=== PATIENT | male | born 1935 | race Caucasian/White ===

== ENCOUNTER 2018-05-02 10:15 | Emergency (ER) | payer OTHER ==
[~2018-05-02] VITALS: Ht 165.1 cm; Wt 71.4 kg
[2018-05-02 10:16] VITALS: Ht 165.1 cm; Wt 71.4 kg
[2018-05-02] MEDS ORDERED: BAYER CHEWABLE81 MG PO (10:19)
[2018-05-02] MEDS ORDERED: PRINIVIL20 MG PO (10:19)
[2018-05-02 10:59] LABS: BASOPHILS 0.2 % (0-2); EOSINOPHILS 1.1 % (0-7); HEMATOCRIT 32.3 % (42.0-54.0); HEMOGLOBIN 11.4 g/dL (13.5-17.5); IMMATURE GRANULOCYTES 0.3 % (0-5); LYMPHOCYTES 27.8 % (15-50); MCH 34.2 pg (26.0-34.0); MCHC 35.3 g/dL (31.0-37.0); MEAN PLATELET VOLUME 8.7 fL (7.4-10.4); MONOCYTES 9.1 % (2-11); NEUTROPHILS 61.5 % (40-80); PLATELET COUNT 251 10x3/uL (130-400); RBC 3.33 10x6/uL (4.20-6.10); RDW 12.8 % (11.5-14.5); WBC 6.6 10x3/uL (4.8-10.8)
[2018-05-02 11:16] LABS: ALBUMIN 3.8 g/dL (3.4-5.0); ALKALINE PHOSPHATASE 39 U/L (46-116); ALT (SGPT) 22 U/L (10-68); BILIRUBIN - TOTAL 0.49 mg/dL (0.2-1.3); CALC OSMOLALITY 271 mosm/kg (275-300); CALCIUM 8.9 mg/dL (8.5-10.1); CHLORIDE - SERUM 99 mmol/L (98-107); CREATININE - SERUM 0.8 mg/dL (0.6-1.3); GLUCOSE 130 mg/dL (74-106); POTASSIUM - SERUM 3.3 mmol/L (3.5-5.1); SODIUM 136 mmol/L (136-145); UREA NITROGEN 8 mg/dL (7-18); eGFR NON AFRICAN AMERICAN > 90 mL/min (90-120)
[2018-05-02 11:18] LABS: APTT 30.6 SECONDS (22.8-39.4); INR 1.03 (0.85-1.17); PROTIME 13.1 SECONDS (11.6-15.0)
[2018-05-02] MEDS ORDERED: POTASSIUM CHLO10 ME1 PO (12:07)
[2018-05-02 12:25] VITALS: BP 139/66
== END 2018-05-02 12:26 | disposition home or self-care (01) ==
LOC: D.ER 10:15
PROVIDERS: Family Medicine
DX: S00.91XA Abrasion of unspecified part of head, initial encounter (principal); W18.30XA Fall on same level, unspecified, initial encounter; Y93.89 Activity, other specified; Y92.019 Unspecified place in single-family (private) house as the place of occurrence of the external cause; E87.6 Hypokalemia; R55 Syncope and collapse; R00.1 Bradycardia, unspecified

== ENCOUNTER → 2019-05-11 08:50 | Outpatient (CLI) | payer OTHER ==
[2018-05-02 10:16] VITALS: BMI 26.1
[~2019-05-11 08:50] MED LIST: BAYER CHEWABLE81 MG PO; POTASSIUM CHLO10 ME1 PO; PRINIVIL20 MG PO
== END | disposition home or self-care (01) ==
LOC: D.MRI 05-06 10:00
PROVIDERS: ATTEND Family Medicine
DX: G31.84 Mild cognitive impairment of uncertain or unknown etiology (principal)